=== PATIENT | male | born 1960 | race Native Hawaiian/Other Pacific Islander ===

== ENCOUNTER 2016-10-16 16:03 | Inpatient (IN) | payer OTHER ==
[~2016-10-16] VITALS: Ht 175.3 cm; Wt 91.2 kg
[2016-10-16] MEDS ORDERED: CHOL200018 PO (16:26)
[2016-10-16] MEDS ORDERED: TICA60TA PO (16:26)
[2016-10-16] MEDS ORDERED: BENA20 PO (16:26)
[2016-10-16] MEDS ORDERED: METO50 PO (16:26)
[2016-10-16] MEDS ORDERED: ATOR40TA28 PO (16:26)
[2016-10-16] MEDS ORDERED: ASPI81 PO (16:26)
[2016-10-16] MEDS ORDERED: NITR.4 SL (16:26)
[2016-10-16] MEDS ORDERED: ALLO300 PO (16:26)
[2016-10-16] MEDS ORDERED: ALBU8.5H IH (16:26)
[2016-10-16] MEDS ORDERED: RANO500T3 PO (16:26)
[2016-10-16] MEDS ORDERED: ALBU2TAB42 PO (16:26)
[2016-10-16] MEDS ORDERED: CHL25 PO (16:26)
[2016-10-16 16:27] LABS: GLUCOSE,POINT OF CARE 124 MG/DL (70-110)
[2016-10-16 17:49] LABS: BASOPHILS % (AUTO) 0.2 % (0.0-2.0); EOSINOPHILS % (AUTO) 0.1 % (1.0-6.0); HEMATOCRIT 51.9 % (41-53); HEMOGLOBIN 16.7 g/dL (13.5-17.5); LYMPHOCYTES # (AUTO) 1.3 K/uL (1.0-4.8); LYMPHOCYTES % (AUTO) 5.4 % (22.0-44.0); MEAN CORPUSCULAR HEMOGLOBIN 27.5 pg (26.0-34.0); MEAN CORPUSCULAR HGB CONC 32.2 G/dL (31.0-37.0); MEAN CORPUSCULAR VOLUME 85 fL (80-100); MONOCYTES # (AUTO) 1.7 K/uL (0.1-1.0); MONOCYTES % (AUTO) 7.2 % (2.0-9.0); NEUTROPHILS # (AUTO) 21.1 K/uL (1.8-7.7); PLATELET COUNT (AUTO) 221 K/uL (150-450); RED BLOOD CELL COUNT(AUTO) 6.08 MIL/uL (4.50-5.90); RED CELL DISTRIBUTION WIDTH 14.4 % (11.5-14.5); WHITE BLOOD COUNT (AUTO) 24.3 K/uL (4.5-11.0)
[2016-10-16 17:55] LABS: NEUTROPHILS % (AUTO) 87.1 % (40.0-70.0)
[2016-10-16 17:56] LABS: APPEARANCE,URINE SL CLOUDY (CLEAR); GLUCOSE, URINE (UA) NEGATIVE (NEGATIVE); KETONES,URINE NEGATIVE (NEGATIVE); LEUKOCYTE ESTERASE ,URINE LARGE (NEGATIVE); OCCULT BLOOD,URINE LARGE (NEGATIVE); PROTEIN,URINE NEGATIVE (NEGATIVE)
[2016-10-16 17:57] LABS: ADD UA MICROSCOPIC YES
[2016-10-16 18:00] LABS: ANION GAP 10 mmol/L (8-16); CALCIUM, TOTAL 9.6 mg/dL (8.8-10.5); CARBON DIOXIDE 30 mmol/L (22-29); CHLORIDE 95 mmol/L (98-107); CREATININE 1.03 mg/dL (0.60-1.30); GLOMERULAR FILTR. RATE CALC > 60 mL/min (>60); SODIUM SERUM 135 mmol/L (136-145); UREA NITROGEN, BLOOD 8 mg/dL (7-18)
[2016-10-16 18:06] LABS: BILIRUBIN,TOTAL 2.6 mg/dL (0.1-1.0)
[2016-10-16 18:07] LABS: ALANINE AMINOTRANSFERASE 39 U/L (12-78); ALBUMIN 3.7 g/dL (3.4-5.0); ASPARTATE AMINOTRANSFERASE 18 U/L (15-37); TOTAL PROTEIN, SERUM 8.2 g/dL (6.4-8.2)
[2016-10-16 18:09] LABS: INR 1.1 (0.9-1.1); PROTHROMBIN TIME 11.3 SEC (9.4-11.6)
[2016-10-16 18:14] LABS: SQUAMOUS EPITHELIAL CELL,UR Rare /LPF (None Seen)
[2016-10-16 18:15] LABS: WBC,URINE 51-100 /HPF (0-5)
[2016-10-16] MEDS ORDERED: SODIUM CHLORIDE 0.9% 1,000 ML IV ONE (18:45)
[2016-10-16] MEDS ORDERED: PIPERACILLIN/TAZO 3.375 GM/D5W 50 ML IV ONE (19:15)
[2016-10-16] MEDS ORDERED: BARIUM SULFATE 0.1% SUSPENSION 450 ML BOTTLE PO ONE (19:30)
[2016-10-16] MEDS ORDERED: IOVERSOL 350 MG/ML 150 ML VIAL ONE (20:14)
[2016-10-16] MEDS ORDERED: SODIUM CHLORIDE 0.9% 100 ML ONE (20:14)
[2016-10-16 20:18] LABS: LACTIC ACID 2.1 mmol/L (0.4-2.0)
[2016-10-16 21:36] LABS: REFLEX LACTIC ACID? YES YES
[2016-10-17] MEDS ORDERED: ZOLPIDEM TARTRATE 5 MG TABLET PO PRN
[2016-10-17] MEDS ORDERED: MORPHINE SULFATE 2 MG/ML SYRINGE IVP PRN
[2016-10-17] MEDS ORDERED: IPRATROPIUM BROMIDE 0.5 MG/2.5 ML NEB SOLUTION NEB PRN
[2016-10-17] MEDS ORDERED: OxyCODONE HCL/ACETAMINOPHEN 5-325 MG TABLET PO PRN
[2016-10-17] MEDS ORDERED: BISACODYL 10 MG RECTAL RECTAL SUPPOSITORY PR PRN
[2016-10-17] MEDS ORDERED: ACETAMINOPHEN 325 MG TABLET PO PRN
[2016-10-17] MEDS ORDERED: MAGNESIUM HYDROXIDE SUSPENSION 30 ML UDCUP PO PRN
[2016-10-17] MEDS ORDERED: ALBUTEROL SULFATE 2.5 MG/0.5 ML NEB SOLUTION NEB PRN
[2016-10-17] MEDS ORDERED: ONDANSETRON HCL 4 MG/2 ML VIAL IVP PRN
[2016-10-17] MEDS: PIPERACILLIN/TAZO 3.375 GM/D5W 50 ML IV SCH ×3 (05:20→21:24)
[2016-10-17 06:10] LABS: HEMATOCRIT 47.9 % (41-53); HEMOGLOBIN 15.9 g/dL (13.5-17.5); MEAN CORPUSCULAR HEMOGLOBIN 28.2 pg (26.0-34.0); MEAN CORPUSCULAR HGB CONC 33.2 G/dL (31.0-37.0); MEAN CORPUSCULAR VOLUME 85 fL (80-100); PLATELET COUNT (AUTO) 197 K/uL (150-450); RED BLOOD CELL COUNT(AUTO) 5.64 MIL/uL (4.50-5.90); RED CELL DISTRIBUTION WIDTH 14.9 % (11.5-14.5); WHITE BLOOD COUNT (AUTO) 24.9 K/uL (4.5-11.0)
[2016-10-17 06:30] LABS: ALBUMIN 3.2 g/dL (3.4-5.0); BILIRUBIN,TOTAL 2.8 mg/dL (0.1-1.0); CALCIUM, TOTAL 8.8 mg/dL (8.8-10.5); CHOL/HDL RATIO 2.3 (4.2-7.3); CREATININE 1.25 mg/dL (0.60-1.30); MAGNESIUM 1.8 mg/dL (1.80-2.40); PHOSPHORUS 3.1 mg/dL (2.5-4.9); POTASSIUM 3.6 mmol/L (3.5-5.1); THYROID STIMULATING HORMONE 0.91 uIU/mL (0.36-3.74); TOTAL PROTEIN, SERUM 7.4 g/dL (6.4-8.2)
[2016-10-17 09:17] VITALS: BP 110/64
[2016-10-17 09:19] VITALS: BP 124/68
[2016-10-17 09:43] LABS: BAND NEUTROPHILS % (MANUAL) 10 % (1-5); LYMPHOCYTES % (MANUAL) 7 % (22-44); TOTAL CELLS COUNTED 100
[2016-10-17] MEDS ORDERED: SODIUM CHLORIDE 0.9% 500 ML IV ONE (09:51)
[2016-10-17] MEDS: METOPROLOL TARTRATE 50 MG TABLET PO SCH ×2 (10:01→21:23)
[2016-10-17] MEDS: HEPARIN SODIUM,PORCINE 5,000 UNITS/ML VIAL SQ SCH ×2 (10:02→21:23)
[2016-10-17] MEDS: ASPIRIN 81 MG CHEWABLE TABLET PO SCH (10:02)
[2016-10-17] MEDS: CHLORTHALIDONE 25 MG TABLET PO SCH (10:03)
[2016-10-17] MEDS: BENAZEPRIL HCL 20 MG TABLET PO SCH (10:03)
[2016-10-17] MEDS: PANTOPRAZOLE SODIUM 40 MG DR TABLET PO SCH (10:03)
[2016-10-17] MEDS: RANOLAZINE 500 MG SR TABLET PO SCH ×2 (10:03→21:23)
[2016-10-17] MEDS: CHOLECALCIFEROL (VIT D3) 2,000 UNITS TABLET PO SCH (10:04)
[2016-10-17] MEDS: TICAGRELOR 60 MG TABLET PO SCH (10:04)
[2016-10-17] MEDS: ALLOPURINOL 300 MG TABLET PO SCH (10:04)
[2016-10-17 11:31] VITALS: BP 126/80
[2016-10-17 16:10] VITALS: BP 116/69
[2016-10-17] MEDS ORDERED: INSULIN ASPART 100 UNITS/ML SQ PRN (18:00)
[2016-10-17] MEDS ORDERED: DEXTROSE 50%-WATER 25 GM/50 ML SYRINGE IVP PRN (18:00)
[2016-10-17 18:22] LABS: GLUCOSE,POINT OF CARE 114 MG/DL (70-110)
[2016-10-17 19:58] VITALS: BP 104/79
[2016-10-17] MEDS ORDERED: ATORVASTATIN CALCIUM 40 MG TABLET PO SCH (21:00)
[2016-10-17 21:52] LABS: GLUCOSE,POINT OF CARE 131 MG/DL (70-110)
[2016-10-18 00:03] VITALS: BP 100/62
[2016-10-18] MEDS: PIPERACILLIN/TAZO 3.375 GM/D5W 50 ML IV SCH ×2 (05:52→14:39)
[2016-10-18 06:05] VITALS: BP 100/64
[2016-10-18 06:47] LABS: GLUCOSE,POINT OF CARE 112 MG/DL (70-110)
[2016-10-18 07:13] VITALS: BP 94/62
[2016-10-18 07:39] LABS: BASOPHILS # (AUTO) 0.04 K/uL (0.00-0.20); BASOPHILS % (AUTO) 0.3 % (0.0-2.0); EOSINOPHILS # (AUTO) 0.05 K/uL (0.00-0.70); EOSINOPHILS % (AUTO) 0.41 % (1.0-6.0); HEMATOCRIT 49.2 % (41-53); HEMOGLOBIN 16.1 g/dL (13.5-17.5); LYMPHOCYTES # (AUTO) 0.8 K/uL (1.0-4.8); MEAN CORPUSCULAR HEMOGLOBIN 27.7 pg (26.0-34.0); MEAN CORPUSCULAR HGB CONC 32.8 G/dL (31.0-37.0); MEAN CORPUSCULAR VOLUME 85 fL (80-100); MONOCYTES # (AUTO) 0.9 K/uL (0.1-1.0); MONOCYTES % (AUTO) 6.7 % (2.0-9.0); NEUTROPHILS # (AUTO) 11.6 K/uL (1.8-7.7); PLATELET COUNT (AUTO) 206 K/uL (150-450); RED BLOOD CELL COUNT(AUTO) 5.82 MIL/uL (4.50-5.90); RED CELL DISTRIBUTION WIDTH 14.8 % (11.5-14.5); WHITE BLOOD COUNT (AUTO) 13.4 K/uL (4.5-11.0)
[2016-10-18 08:06] LABS: NEUTROPHILS % (AUTO) 86.6 % (40.0-70.0); RBC MORPHOLOGY COMMENT NORMAL RBC MORPH
[2016-10-18 08:11] LABS: CALCIUM, TOTAL 8.8 mg/dL (8.8-10.5); CREATININE 1.24 mg/dL (0.60-1.30); POTASSIUM 3.4 mmol/L (3.5-5.1)
[2016-10-18] MEDS: ASPIRIN 81 MG CHEWABLE TABLET PO SCH (08:40)
[2016-10-18] MEDS: CHLORTHALIDONE 25 MG TABLET PO SCH (08:40)
[2016-10-18] MEDS: METOPROLOL TARTRATE 50 MG TABLET PO SCH ×2 (08:40→09:00)
[2016-10-18] MEDS: TICAGRELOR 60 MG TABLET PO SCH (08:40)
[2016-10-18] MEDS: PANTOPRAZOLE SODIUM 40 MG DR TABLET PO SCH (08:41)
[2016-10-18] MEDS: RANOLAZINE 500 MG SR TABLET PO SCH (08:41)
[2016-10-18] MEDS: BENAZEPRIL HCL 20 MG TABLET PO SCH ×2 (08:41→09:00)
[2016-10-18] MEDS: CHOLECALCIFEROL (VIT D3) 2,000 UNITS TABLET PO SCH (08:41)
[2016-10-18] MEDS: ALLOPURINOL 300 MG TABLET PO SCH (08:42)
[2016-10-18] MEDS: HEPARIN SODIUM,PORCINE 5,000 UNITS/ML VIAL SQ SCH (08:42)
[2016-10-18 11:28] LABS: GLUCOSE COMMENT 1 Received Meds; GLUCOSE,POINT OF CARE 131 MG/DL (70-110)
[2016-10-18 12:20] VITALS: BP 112/73
[2016-10-18 15:42] VITALS: BP 108/78
[2016-10-18] MEDS ORDERED: CIPRO PO (16:04)
== END 2016-10-18 16:35 | disposition home or self-care (01) | DRG 720 ==
LOC: EMS 16:12 → 6N 10-17 06:25
PROVIDERS: ADMIT Internal Medicine; ATTEND Internal Medicine
DX: A41.9 Sepsis, unspecified organism (principal); E55.9 Vitamin D deficiency, unspecified; I10 Essential (primary) hypertension; J44.9 Chronic obstructive pulmonary disease, unspecified; N30.01 Acute cystitis with hematuria; E11.9 Type 2 diabetes mellitus without complications; J45.909 Unspecified asthma, uncomplicated; E78.00 Pure hypercholesterolemia, unspecified; I25.2 Old myocardial infarction; M10.9 Gout, unspecified; N41.9 Inflammatory disease of prostate, unspecified; E78.5 Hyperlipidemia, unspecified; Z79.82 Long term (current) use of aspirin; Z79.899 Other long term (current) drug therapy; N39.0 Urinary tract infection, site not specified
CPT/HCPCS: 74177; 82306; 82962; 83605; 83735; 84100; 84443; 87040; 87086; 96365; 99285; J1644; J2543; J7030; J7040; J7050